=== PATIENT | male | born 1960 | race Caucasian/White ===

== ENCOUNTER 2017-11-06 06:01 | Day surgery (SDC) | payer OTHER ==
[~2017-11-06] VITALS: Ht 177.8 cm; Wt 88.5 kg
[2017-11-06] MEDS ORDERED: PROPOFOL 200 MG/20 ML VIAL IV ONE (08:50)
[2017-11-06] MEDS ORDERED: SEVOFLURANE 250 ML BTL INH ONE (08:50)
[2017-11-06] MEDS ORDERED: MEPERIDINE 50 MG/ML SYR ONE ×2 (08:50→09:04)
[2017-11-06] MEDS ORDERED: ONDANSETRON 4 MG/2 ML VIAL ONE (08:50)
[2017-11-06] MEDS ORDERED: DEXAMETHASONE 4 MG/ML VIAL ONE (08:50)
[2017-11-06] MEDS ORDERED: BUPIVACAINE-MPF 0.25% 30 ML VIAL INJ ONE (08:54)
[2017-11-06] MEDS ORDERED: GELATIN SPONGE 100 1 SPG TP ONE (08:54)
[2017-11-06] MEDS ORDERED: LIDOCAINE 2% 100 MG/5 ML UJET TP ONE (08:56)
[2017-11-06] MEDS ORDERED: MIDAZOLAM 2 MG/2 ML VIAL ONE (09:04)
[2017-11-06] MEDS ORDERED: fentaNYL 0.05 MG/ML VIAL ONE (09:04)
[2017-11-06] MEDS ORDERED: NACL 0.9% 1,000 ML IV SCH (09:34)
[2017-11-06] MEDS ORDERED: diphenhydrAMINE 50 MG/ML VIAL IVP PRN (09:35)
[2017-11-06] MEDS ORDERED: HYDROmorphone PFS 2 MG/ML SYR IVP PRN (09:35)
[2017-11-06] MEDS ORDERED: MEPERIDINE 25 MG/ML SYR IVP PRN (09:35)
[2017-11-06] MEDS ORDERED: NEOMYCIN/POLYMYXIN/BACITRACIN OIN 15 GM TUBE TP ONE (09:46)
[2017-11-06] MEDS ORDERED: MORPHINE SULFATE 2 MG/ML SYR IVP PRN (10:15)
[2017-11-06] MEDS ORDERED: MORPHINE SULFATE 4 MG/ML SYR IV PRN (10:15)
[2017-11-06] MEDS ORDERED: HYDROcodone/APAP 5/325 MG 1 TAB TAB PO PRN (10:15)
[2017-11-06] MEDS ORDERED: HYDROmorphone 1 MG/ML AMP IVP PRN (10:15)
[2017-11-06] MEDS ORDERED: INSULIN REGULAR, HUMAN 100 UNIT/ML VIAL SUBQ ONE (10:20)
[2017-11-06] MEDS ORDERED: BLOOD GLUCOSE MONITORING 1 DEV DEV FS SCH (11:09)
[2017-11-06] MEDS ORDERED: INSULIN LISPRO 100 UNITS/ML VIAL SUBQ SCH (11:12)
== END 2017-11-06 11:30 | disposition home or self-care (01) ==
LOC: MDS 06:01 → MMU 06:07 → MDS 11:30
PROVIDERS: ATTEND Surgery
DX: D36.7 Benign neoplasm of other specified sites (principal); I10 Essential (primary) hypertension; E11.9 Type 2 diabetes mellitus without complications; E78.00 Pure hypercholesterolemia, unspecified; E78.5 Hyperlipidemia, unspecified; Z79.84 Long term (current) use of oral hypoglycemic drugs; Z79.899 Other long term (current) drug therapy; Z98.890 Other specified postprocedural states
CPT/HCPCS: 46922; 71045; 82948; 88304; 93005; J0690; J1100; J1815; J2175; J2250; J2405; J2704; J3010; J3490; J7060